=== PATIENT | female | born 1965 | race Hispanic/Latino ===

== ENCOUNTER 2018-11-23 04:08 | Inpatient (IN) | payer SELFPAY ==
[2018-11-23 04:13] VITALS: BMI 25.0
--- NOTE | 2018-11-23 04:16 | C.PDOC ---
History Of Present Illness Patient presents to the ER from [facility] where she was medically cleared and accepted in transfer by Dr. Guzman for major depression. Denies physical complaints at this time. Time Seen by Provider: 11/23/18 04:15 Chief Complaint (Nursing): Psychiatric Evaluation History Per: Patient History/Exam Limitations: no limitations Onset/Duration Of Symptoms: Days Current Symptoms Are (Timing): Still Present Suicide/Self Injury Attempted (Context): None Involuntary Hold By: None Recent travel outside of the [place]: No Past Medical History Reviewed: Historical Data, Nursing Documentation, Vital Signs Family History: States: Unknown Family Hx Review Of Systems Constitutional: Negative for: Fever, Chills Cardiovascular: Negative for: Chest Pain, Palpitations Respiratory: Negative for: Cough, Shortness of Breath Gastrointestinal: Negative for: Nausea, Vomiting Neurological: Negative for: Weakness, Numbness Physical Exam - Physical Exam Appears: Non-toxic Skin: Warm, Dry Head: Normacephalic Eye(s): bilateral: Normal Inspection Oral Mucosa: Moist Chest: Symmetrical, No Tenderness Cardiovascular: Rhythm Regular Respiratory: No Rales, No Rhonchi, No Wheezing Gastrointestinal/Abdominal: Soft, No Tenderness Neurological/Psych: Oriented x3 Gait: Steady Disposition Discussed With DrBolivar: Martha Guzman Comment: accepted the pt on his service and took over the care at 4:19AM Doctor Will See Patient In The: Hospital Counseled Patient/Family Regarding: Studies Performed, Diagnosis - Disposition Disposition: HOSPITALIZED Disposition Time: 04:15 Condition: FAIR Forms: [facility] (Latvian) - Clinical Impression Clinical Impression: Alcohol abuse, Major depression - Scribe Statement The provider has reviewed the documentation as recorded by the Scribramsey Nagel All medical record entries made by the Scribe were at my direction and personally dictated by me. I have reviewed the chart and agree that the record accurately reflects my personal performance of the history, physical exam, medical decision making, and the department course for this patient. I have also personally directed, reviewed, and agree with the discharge instructions and disposition. Decision To Admit - Pt Status Changed To: Hospital Disposition Of: Inpatient - Admit Certification Admit to Inpatient:: After my assessment, the patient will require hospitalization for at least two midnights. This is because of the severity of symptoms shown, intensity of services needed, and/or the medical risk in this patient being treated as an outpatient. - InPatient: Physician Admission Certification: I certify that this patient requires 2 or more midnights of care for the following reason:: After my assessment, the patient will require hospitalization for at least two midnights. This is because of the severity of symptoms shown, intensity of services needed, and/or the medical risk in this patient being treated as an outpatient. - . Bed Request Type: Psychiatry Admitting Physician: Martha Guzman Patient Diagnosis: Alcohol abuse, Major depression
--- NOTE | 2018-11-23 04:57 | PCM.BM ---
<Kaden Suarez [place] - Last Filed: 11/23/18 04:55> Treatment Plan Problems - Problems identified on initial assessmt Hopelessness/Helplessness Date Initiated: 11/23/18 Time Initiated: 04:35 Assessment reference: NA Status: Active Feeling of Worthlessness Date Initiated: 11/23/18 Time Initiated: 04:35 Assessment reference: NA Status: Active Knowledge Deficit: Alcohol Use Date Initiated: 11/23/18 Time Initiated: 04:35 Assessment reference: NA Status: Active Treatment assets and liabiliti Patient Assests: cooperative, ADL independent, good support system Patient Liabilities: substance abuse (History of ETOH and Marijuana use) - Milieu Protocol Maintain good personal hygiene: daily Encourage regular showers, daily Remind patient to perform daily oral care, every shift Assist patient to perform ADL's Conduct patient checks and document Observation sheet: Q15 minutes Maintain personal safety: every shift Educate patient to report safety concerns to staff, every shift Monitor environment for contraband/sharps Medication safety: Monitor for expected outcome, potential side effects: every shift, Assess barriers to learning: every shift, Assess readiness for medication education: every shift <Martha Guzman - Last Filed: 11/26/18 10:22> - Diagnosis (1) Major depression Status: Acute Interventions: 11/26/18 10:22 * Assess/adjust medications daily and /or as needed * See patient on an individual basis 7x/week to assess symptoms of depression * Monitor for side effects & effectiveness of medications * (2) Alcohol abuse Status: Acute Interventions: 11/26/18 10:22 * Assess 7x/week regarding severity of withdrawal * Educate regarding risks, benefits, side effects and alternatives of medications * Use Motivational Interviewing for abstinence * Use CBT for relapse prevention * Medication management for withdrawal symptoms * Encourage medication assisted treatment * <Marian Salgado - Last Filed: 11/26/18 11:25> Family Contact Family involvement: Family/SO is involved Family contact: Patient declines to allow family contact at present - Goals for Treatment Patient goals for treatment: "I want to go home." Discharge/Continuing Care - Education Needs Education Needs: Patient Medication, Patient Coping Skills - Discharge Discharge Criteria: Tolerates medication w/o severe side effects, Reduction of target symptoms Discharge to:: Home, With Family - Treatment Team Participation Discussed with Family/SO: No Was Patient/Family/SO present at Treatment Team Meeting: Yes
[2018-11-23] MEDS ORDERED: Magnesium Hydroxide Susp 30 ml UD PO PRN (06:35)
[2018-11-23 06:41] VITALS: O2SAT 97
--- NOTE | 2018-11-23 10:26 | PCM.PSYCH ---
Initial Psychiatric Evaluation - Initial Psychiatric Evaluation Type of Admission: Voluntary Legal Status: Capacity Chief Complaint (in patient's own words): i was feeling increasingly depressed and relapsed on drinking.' History of Present Illness and Precipitating Events: Patient is a 53-year-old female who lives alone, was transferred from [facility], because of depressed mood, and alcohol intoxication Patient denies any history of any inpatient psychiatric hospitalizations or any history of follow-up with any however she reports his psychiatrist in the past. However she reports a long history of drinking. Patient reports of drinking 1-3 pints daily. Patient reports that she started dating with a construction hilda who was fixing her home. She spent a lot on the construction and now she is broke and he is left. Yesterday she became increasingly depressed and she started drinking and developed passive suicidal ideation. She called 911 and she was escorted to the [facility]. Today today patient was transferred to the [facility]. Her BAL was 341. She reports depressed mood, at times feelings of hopelessness, helplessness and worthlessness. She reports poor sleep and poor appetite. She reports withdrawal symptoms from drinking including shakes, tremors, anxiety, headache and sweating. She also reports at times irritability and agitation. However she denies any auditory or visual hallucinations or any paranoia. She reports history of rehab. She has been clean for 3 years in the past. Past medical history Hypertension Current Medications: Active Medications Generic Name Dose Route Start Last Admin Trade Name Freq PRN Reason Stop Dose Admin Influenza Virus Vaccine 60 mcg 11/24/18 10:20 Flucelvax Quad [id number] Syr IM 11/24/18 10:21 .ONCE ONE Lorazepam 1 mg 11/23/18 05:12 Ativan PO Q6 PRN Symptoms of alcohol withdrawl Magnesium Hydroxide 30 ml 11/23/18 06:35 Milk Of Magnesia PO 11/24/18 06:35 Q12 PRN Constipation Pneumococcal Polyvalent Vaccine 0.5 ml 11/25/18 10:00 Pneumovax 23 Vaccine IM 11/25/18 10:01 .ONCE ONE Past Psychiatric History - Past Psychiatric History Previous Treatment History: None Pertinent Medical Hx (Current Medical&Sleep Prob, Allergies): Allergies Allergy/AdvReac Type Severity Reaction Status Date / Time No Known Allergies Allergy Verified 11/23/18 04:17 No Known Home Med 11/23/18 Review of Systems - Review of Systems All systems: reviewed and no additional remarkable complaints except - Psychiatric Psychiatric: Anxiety, Depression, Hopelessness, Irritability, Suicidal Ideation Mental Status Examination - Personal Presentation Personal Presentation: Looks stated age - Affect Affect: Constricted, Depressed - Motor Activity Motor Activity: Calm - Reliability in Providing Information Reliability in Providing Information: Good - Mood Mood: Depressed, Anxious - Formal Thought Process Formal Thought Process: No Impairment - Obsessions/Compulsions Obsessions: No Compulsions: No - Cognitive Functions Orientation: Person, Place, Situation, Time Sensorium: Alert Attention/Concentration: Attentive Abstract Thinking: [place] Estimate of Intelligence: Below average Judgement: Imparied, as evidence by: Poor judgement, Imparied, as evidence by: Lack of insight into illness - Risk Risk: Suicidal, Withdrawal, Diminished functioning - Limitations Limitations: Living alone DSM 5 DX - DSM 5 DSM 5 Diagnosis: 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
[2018-11-23] MEDS: Multiple Vitamins Tab PO SCH (11:24)
[2018-11-24] MEDS: Multiple Vitamins Tab PO SCH (09:58)
[2018-11-24] MEDS ORDERED: Influenza Vaccine 60 mcg/0.5 mL SYR (4YR UP) IM ONE (10:20)
[2018-11-25] MEDS ORDERED: Pneumococcal 23-Valent Vaccine IM ONE (10:00)
[2018-11-25] MEDS: Multiple Vitamins Tab PO SCH (10:38)
[2018-11-26] MEDS: Multiple Vitamins Tab PO SCH (09:42)
--- NOTE | 2018-11-26 09:42 | PCM.PYCHPN ---
Psychiatric Progress Note - Psychiatric Progress Note Patient seen today, length of contact: 15 min Patient Chief Complaint: i was feeling increasingly depressed and relapsed on drinking.' Medication Change: Yes Medical Record Reviewed: Yes Mental Status Examination - Cognitive Function Orientation: Person, Place, Situation, Time - Mood Mood: Depressed, Anxious - Affect Affect: Constricted, Depressed - Formal Thought Process Formal Thought Process: No Impairment Goal/Treatment Plan - Goal/Treatment Plan Progress Toward Problem(s) and Goals/Treatment Plan: Major depressive disorder single episode severe without psychotic features Alcohol use disorder severe Alcohol withdrawal CBT Psychoeducation supportive therapy and group therapy Neurontin for augmentation Ativan taper Ativan as needed Paxil for depression Trazodone for insomnia Hydroxyzine for anxiety
[2018-11-26] MEDS ORDERED: Vitamins A & D Oint UD Foilpak TOP PRN (17:32)
[2018-11-27 08:25] VITALS: BP 106/70; PULSE 76; RESP 18; TEMP 98.3
[2018-11-27] MEDS: Multiple Vitamins Tab PO SCH (10:04)
--- NOTE | 2018-11-27 10:15 | PCM.PYCHDC ---
Mental Status Examination - Mental Status Examination Orientation: Person, Place, Situation, Time Memory: Intact Mood: Neutral Affect: Constricted Speech: Soft Attention: WNL Concentration: WNL Association: WNL Fund of Knowledge: WNL Formal Thought Process: No Impairment Description of patient's judgement and insight: good, fair Suicidal Ideation: No Current Homicidal Ideation?: No Discharge Summary - Discharge Note Reason for Hospitalization: Patient is a 53-year-old female who lives alone, was transferred from [facility], because of depressed mood, and alcohol intoxication Patient denies any history of any inpatient psychiatric hospitalizations or any history of follow-up with any however she reports his psychiatrist in the past. However she reports a long history of drinking. Patient reports of drinking 1-3 pints daily. Patient reports that she started dating with a construction hilda who was fixing her home. She spent a lot on the construction and now she is broke and he is left. Yesterday she became increasingly depressed and she started drinking and developed passive suicidal ideation. She called 911 and she was escorted to the [facility]. Today today patient was transferred to the [facility]. Her BAL was 341. She reports depressed mood, at times feelings of hopelessness, helplessness and worthlessness. She reports poor sleep and poor appetite. She reports withdrawal symptoms from drinking including shakes, tremors, anxiety, headache and sweating. She also reports at times irritability and agitation. However she denies any auditory or visual hallucinations or any paranoia. She reports history of rehab. She has been clean for 3 years in the past. Consultations:: List each consultation separately and include: 1. Reason for request. 2. Findings. 3. Follow-up Summary of Hospital Course include:: 1. Description of specific treatment plan utilized for patients during their course of treatmen. 2. Summarize the time- course for resolution of acute symptoms and/or regressed behaviors. 3. Describe issues identified and worked on during hospitalization. 4. Describe medication utilized. 5. Describe medical problems identified and treated. 6. Reassessment of suicide risk Summary of Hospital Course: Patient is a 53-year-old female who lives alone, was transferred from [facility], because of depressed mood, and alcohol intoxication Patient denies any history of any inpatient psychiatric hospitalizations or any history of follow-up with any however she reports his psychiatrist in the past. However she reports a long history of drinking. Patient reports of drinking 1-3 pints daily. Patient reports that she started dating with a construction hilda who was fixing her home. She spent a lot on the construction and now she is broke and he is left. Yesterday she became increasingly depressed and she started drinking and developed passive suicidal ideation. She called 911 and she was escorted to the [facility]. Today today patient was transferred to the [facility]. Her BAL was 341. She reports depressed mood, at times feelings of hopelessness, helplessness and worthlessness. She reports poor sleep and poor appetite. She reports withdrawal symptoms from drinking including shakes, tremors, anxiety, headache and sweating. She also reports at times irritability and agitation. However she denies any auditory or visual hallucinations or any paranoia. She reports history of rehab. She has been clean for 3 years in the past. Past medical history Hypertension - Diagnosis (1) Major depression Current Visit: Yes Status: Acute (2) Alcohol abuse Current Visit: Yes Status: Acute - Final Diagnosis (DSM 5) Condition upon Discharge: FAIR DSM 5: Major depressive disorder single episode severe without psychotic features Alcohol use disorder severe Alcohol withdrawal Disposition: HOME/ ROUTINE Follow-up Treatment Plan: Major depressive disorder single episode severe without psychotic features Alcohol use disorder severe Alcohol withdrawal CBT Psychoeducation supportive therapy and group therapy Neurontin for augmentation Ativan taper Ativan as needed Paxil for depression Trazodone for insomnia Hydroxyzine for anxiety Prescriptions/Medication Reconciliation: Gabapentin [Neurontin] 100 mg PO BID #60 cap PARoxetine [Paxil] 10 mg PO DAILY #30 tab traZODone [Desyrel] 50 mg PO HS PRN #30 tab PRN Reason: Insomnia
== END 2018-11-27 11:04 | disposition home or self-care (01) | DRG 885 ==
LOC: C.ER 04:08 → C.5E 04:18
PROVIDERS: ADMIT Psychiatry & Neurology Psychiatry; ATTEND Psychiatry & Neurology Psychiatry
PROC: GZHZZZZ Group Psychotherapy (ICD-10-PCS; principal; 2018-11-23)
PROC: HZ2ZZZZ Detoxification Services for Substance Abuse Treatment (ICD-10-PCS; 2018-11-23)
PROC: HZ52ZZZ Individual Psychotherapy for Substance Abuse Treatment, Cognitive-Behavioral (ICD-10-PCS; 2018-11-23)
PROC: HZ59ZZZ Individual Psychotherapy for Substance Abuse Treatment, Supportive (ICD-10-PCS; 2018-11-23)
PROC: HZ56ZZZ Individual Psychotherapy for Substance Abuse Treatment, Psychoeducation (ICD-10-PCS; 2018-11-23)
PROC: HZ42ZZZ Group Counseling for Substance Abuse Treatment, Cognitive-Behavioral (ICD-10-PCS; 2018-11-23)
PROC: HZ46ZZZ Group Counseling for Substance Abuse Treatment, Psychoeducation (ICD-10-PCS; 2018-11-23)
PROC: GZ58ZZZ Individual Psychotherapy, Cognitive-Behavioral (ICD-10-PCS; 2018-11-23)
PROC: GZ56ZZZ Individual Psychotherapy, Supportive (ICD-10-PCS; 2018-11-23)
DX: F32.2 Major depressive disorder, single episode, severe without psychotic features (principal); F10.230 Alcohol dependence with withdrawal, uncomplicated; R45.851 Suicidal ideations; F10.220 Alcohol dependence with intoxication, uncomplicated; Y90.9 Presence of alcohol in blood, level not specified; F12.90 Cannabis use, unspecified, uncomplicated; G47.00 Insomnia, unspecified; F41.9 Anxiety disorder, unspecified